=== PATIENT | female | born 1960 | race Hispanic/Latino ===

== ENCOUNTER → 2020-04-14 | Day surgery (SDC) | payer BC ==
[2020-04-10 10:14] LABS: BLOOD UREA NITROGEN 15 mg/dL (7-26); BUN/CREATININE RATIO 21 (6-25); CALCIUM 9.2 mg/dL (8.4-10.2); CARBON DIOXIDE 28 mmol/L (22-29); CHLORIDE 103 mmol/L (98-107); CREATININE, SERUM 0.73 mg/dL (0.57-1.11); EST GLOMERULAR FILTRATION RATE > 60 ML/MIN (60-); GLUCOSE 205 mg/dL (74-118); SODIUM 138 mmol/L (136-145)
[~2020-04-14] MED LIST: ACETAMINOPHEN/CODEINE 300MG - 30MG TAB ONE; DEXAMETHASONE SOD PHOS INJ 4 MG/ML VIAL ONE; GLYBURIDE5 MG PO; LIDOCAINE HCL 2% JELLY 5 ML TUBE ONE; LIDOCAINE HCL 2% LOCAL INJ 5 ML SDV VIAL INJ ONE; LIPITOR10 MG PO; LOSARTAN POTAS100 MG PO; ONDANSETRON HCL INJ 2MG/ML 2ML 2 MG/ML VIAL ONE; PROPOFOL IV EMULSION 10 MG/ML 20 ML VIAL ONE; SEVOFLURANE INHAL SOLN 250 ML PEN BTL ONE
[2020-04-14] MEDS: CEFAZOLIN SOD 1 GM/NS 50ML 50 ML IV ONE (06:14)
[2020-04-14 09:17] VITALS: BP 142/76
== END | disposition home or self-care (01) ==
LOC: OR 05:24
PROVIDERS: ATTEND Specialist
DX: S83.231D Complex tear of medial meniscus, current injury, right knee, subsequent encounter (principal); M22.2X1 Patellofemoral disorders, right knee; I10 Essential (primary) hypertension; E11.9 Type 2 diabetes mellitus without complications; Z79.84 Long term (current) use of oral hypoglycemic drugs; E78.00 Pure hypercholesterolemia, unspecified; Z79.899 Other long term (current) drug therapy; Z01.812 Encounter for preprocedural laboratory examination; Z01.810 Encounter for preprocedural cardiovascular examination; Z20.828 Contact with and (suspected) exposure to other viral communicable diseases; X58.XXXD Exposure to other specified factors, subsequent encounter
CPT/HCPCS: 29881; 36415 ×2; 80048; 82948; 93005; J0690; J1100; J2001 ×2; J2405; J2704; U0002